=== PATIENT | female | born 1960 | race Caucasian/White ===

== ENCOUNTER 2016-12-23 23:57 | Emergency (ER) | payer OTHER | END 2016-12-24 02:50 | disposition short-term general hospital (02) | LOC: ER 23:57 | DX: S32.039A Unspecified fracture of third lumbar vertebra, initial encounter for closed fracture (principal); R07.81 Pleurodynia; M54.9 Dorsalgia, unspecified; M79.1 Myalgia; V47.0XXA Car driver injured in collision with fixed or stationary object in nontraffic accident, initial encounter; Y92.410 Unspecified street and highway as the place of occurrence of the external cause; Z88.8 Allergy status to other drugs, medicaments and biological substances; Z79.899 Other long term (current) drug therapy; Z79.84 Long term (current) use of oral hypoglycemic drugs | CPT/HCPCS: 51702; 71250; 72128; 72131; 82962; 96374; 96375; 96376; 99070; 99284-25; J1170; J2920 ==